=== PATIENT | female | born 1970 | race Caucasian/White ===

== ENCOUNTER 2023-01-04 11:36 | Outpatient (REF) | payer MEDICAID, SELFPAY ==
--- NOTE | 2023-01-08 08:08 | MHC.AU.HA3 ---
Hearing Instrument Follow-Up- Binaural Date of Visit: 01/04/23 Right Ear: Carlos, Model, Color, Serial Number: Dereje Edwards [id number] SN: [id number] Executive Chairman Of The Board Repair Warranty: 06/04/2025 Executive Chairman Of The Board Loss and Damage Warranty: 06/04/2025 Battery Size: 675 Dispensed By: [facility] Date of Fitting: February 2022 Left Ear: Carlos, Model, Color, Serial Number: Dereje Edwards P70-UP SN: [id number] Executive Chairman Of The Board Repair Warranty: 06/04/2025 Executive Chairman Of The Board Loss and Damage Warranty: 06/04/2025 Battery Size: 675 Dispensed By: [facility] Date of Fitting: February 2022 Follow-Up Summary: Elma returned for routine hearing aid maintenance. She was a previous patient here several years ago and had transferred care to [facility] due to the vicinity near her home. However, due to insurance issues, she had to return here. She was recently fit with new hearing aids at [facility] at the beginning of 2022. Tubing was starting to get hard and full of wax. Cleaned hearing aids and ear molds. Vacuumed microphones. Ran through dehumidifier. Replaced tubing. Connected to [employer] software to read out settings. A listening check demonstrated the hearing aids are functioning appropriately. Elma signed a Release of Information form to have her records requested from [facility]. Recommendations: Hearing instrument maintenance in 6 months, or sooner if needed. Please contact our clinic with any questions or concerns. Diagnosis Code(s): Primary Diagnosis: H90.3 Bilateral Sensorineural Hearing Loss Signature: Provider: Krystin Chávez, [facility]
== END 2023-01-04 11:37 | disposition home or self-care (01) ==
LOC: HO.HAP 11:36
PROVIDERS: Visit Provider Family Medicine
DX: Z46.1 Encounter for fitting and adjustment of hearing aid (principal); H90.3 Sensorineural hearing loss, bilateral
CPT/HCPCS: 92593; 99499

== ENCOUNTER 2023-08-13 11:27 | Outpatient (REF) | payer SELFPAY | END 2023-08-13 11:28 | disposition home or self-care (01) | LOC: HO.HAP 11:27 | PROVIDERS: Visit Provider Family Medicine | DX: Z46.1 Encounter for fitting and adjustment of hearing aid (principal); H90.3 Sensorineural hearing loss, bilateral | CPT/HCPCS: 92593 ==

== ENCOUNTER 2023-11-07 10:49 | Outpatient (REF) | payer SELFPAY ==
--- NOTE | 2023-11-07 11:09 | MHC.AU.HA3 ---
Hearing Instrument Follow-Up- Binaural Date of Visit: 11/07/23 Right Ear: Make, Model, Color, Serial Number: Dereje Edwards P70-UP SN: [id number] Sisal Operator Repair Warranty: 06/04/2025 Sisal Operator Loss and Damage Warranty: 06/04/2025 [facility] Service Plan: n/a Battery Size: 675 Earmold/Dome/CShell/SlimTip:silicone canal lock Dispensed By: [facility] Date of Fitting: February 2022 Left Ear: Make, Model, Color, Serial Number: Dereje Edwards P70-UP SN: [id number] Sisal Operator Repair Warranty: 06/04/2025 Sisal Operator Loss and Damage Warranty: 06/04/2025 [facility] Service Plan: n/a Battery Size: 675 Earmold/Dome/CShell/SlimTip: silicone canal lock Dispensed By: [facility] Date of Fitting: February 2022 Follow-Up Summary: Elma is here with her left tubing attached to tonehook with tape. Both tubes are stiff. Cleaned earmolds. Cleaned aids and ran through dehumidifier. Replaced tonehooks and tubing. Listening check positive. Improvement reported. Recommendations: Recommendations: Hearing instrument maintenance in 6 months, or sooner if needed. Diagnosis Code(s): Primary Diagnosis: H90.3 Bilateral Sensorineural Hearing Loss Signature: Provider: Krystin Mcguire, [facility]
== END 2023-11-07 10:50 | disposition home or self-care (01) ==
LOC: HO.HAP 10:49
PROVIDERS: Visit Provider Family Medicine
DX: Z46.1 Encounter for fitting and adjustment of hearing aid (principal); H90.3 Sensorineural hearing loss, bilateral
CPT/HCPCS: 92593